=== PATIENT | female | born 1985 | race Hispanic/Latino ===

== ENCOUNTER 2024-03-27 15:02 | Observation (INO) | payer BC, MEDICAID ==
[~2024-03-27] VITALS: Ht 162.6 cm; Wt 75.3 kg
[~2024-03-27 15:02] MED LIST: DOCU-116 PO; IBUP-2077 PO; PREN1TAB80 PO
[2024-03-27 15:33] LABS: APPEARANCE,URINE CLEAR (CLEAR); BILIRUBIN,URINE NEGATIVE (NEGATIVE); COLOR,URINE LIGHT-YELLOW (YELLOW); GLUCOSE, URINE (UA) NEGATIVE (NEGATIVE); KETONES,URINE NEGATIVE (NEGATIVE); LEUKOCYTE ESTERASE ,URINE NEGATIVE Leu/uL (NEGATIVE); NITRATE,URINE NEGATIVE (NEGATIVE); OCCULT BLOOD,URINE NEGATIVE (NEGATIVE); PH,URINE 7.5 (5.0-8.0); PROTEIN,URINE NEGATIVE (NEGATIVE); UROBILINOGEN,URINE 0.2 mg/dL (0.2-1.0)
[2024-03-27] MEDS: LACTATED RINGERS 1000ML IV ONE (15:40)
[2024-03-27 15:47] LABS: ADD UA MICROSCOPIC YES
[2024-03-27 15:50] LABS: SQUAMOUS EPITHELIAL CELL,UR RARE /HPF (0-2); WBC,URINE 0-1 /HPF (0-1)
== END 2024-03-27 17:10 | disposition home or self-care (01) ==
LOC: LDH 15:10
PROVIDERS: ADMIT Obstetrics & Gynecology; ATTEND Obstetrics & Gynecology
DX: O62.9 Abnormality of forces of labor, unspecified (principal); O36.8130 Decreased fetal movements, third trimester, not applicable or unspecified; Z3A.36 36 weeks gestation of pregnancy
CPT/HCPCS: 96360; 81001; 76819; 76805; G0378 ×2; G0379; J7120; 59025

== ENCOUNTER 2024-04-11 17:26 | Inpatient (IN) | payer BC, MEDICAID ==
[~2024-04-11] VITALS: Ht 162.6 cm; Wt 77.6 kg
[2024-04-11] MEDS ORDERED: ePHEDrine SULFate 50 MG/ML AMPULE IVP PRN (18:00)
[2024-04-11] MEDS ORDERED: NALoxone HCL 0.4 MG/1 ML ML IV PRN (18:00)
[2024-04-11 18:27] LABS: HEMATOCRIT 33.9 % (36-48); MEAN CORPUSCULAR HEMOGLOBIN 32.3 pg (27.0-33.0); MEAN CORPUSCULAR HGB CONC 32.7 g/dL (32.0-36.0); MEAN CORPUSCULAR VOLUME 98.5 fL (79-99); RED BLOOD CELL COUNT(AUTO) 3.44 MIL/uL (4.00-5.50); RED CELL DISTRIBUTION WIDTH 13.1 % (11.0-15.5); WHITE BLOOD COUNT (AUTO) 5.4 K/uL (4.8-10.8)
[2024-04-11 18:33] LABS: APPEARANCE,URINE CLEAR (CLEAR); BILIRUBIN,URINE NEGATIVE (NEGATIVE); COLOR,URINE LIGHT-YELLOW (YELLOW); GLUCOSE, URINE (UA) NEGATIVE (NEGATIVE); KETONES,URINE 20 mg/dL (NEGATIVE); LEUKOCYTE ESTERASE ,URINE NEGATIVE Leu/uL (NEGATIVE); NITRATE,URINE NEGATIVE (NEGATIVE); OCCULT BLOOD,URINE NEGATIVE (NEGATIVE); PROTEIN,URINE NEGATIVE (NEGATIVE); UROBILINOGEN,URINE 0.2 mg/dL (0.2-1.0)
[2024-04-11 18:34] LABS: ADD UA MICROSCOPIC YES; MUCUS,URINE RARE LPF (None Seen); SQUAMOUS EPITHELIAL CELL,UR RARE /HPF (0-2); WBC,URINE 0-1 /HPF (0-1)
[2024-04-11] MEDS: DINOPROSTONE 10 MG VAGINAL SUPP VG ONE (19:06)
[2024-04-11 19:41] LABS: HIV 1&2 ANTIBODY Non-Reactive (Negative); HIV-1 p24 Antigen Non-Reactive (Negative)
[2024-04-11] MEDS: PROMETHAZINE HCL 25 MG/ML 1ML AMPULE IM PRN (22:05)
[2024-04-11] MEDS: MEPERIDINE-PF 50 MG/ML SYG IVP PRN (22:11)
[2024-04-12] MEDS: LACTATED RINGERS 1000ML 1,000 ML IV PRN (02:21)
[2024-04-12] MEDS ORDERED: FENTanyl CITRate PF 50 MCG/1 ML 2ML VIAL ONE (07:06)
[2024-04-12] MEDS ORDERED: LIDOCAINE HCL 1% 20 ML VIAL ONE (07:11)
[2024-04-12] MEDS ORDERED: MISOPROSTOL 200 MCG TABLET ONE (07:12)
[2024-04-12] MEDS: LACTATED RINGERS 500 ML 500 ML IV PRN (07:15)
[2024-04-12] MEDS ORDERED: LANOLIN 30GM OINTMENT TP PRN (10:30)
[2024-04-12] MEDS ORDERED: acetaMINOPHEN 325 MG TAB PO PRN (10:30)
[2024-04-12] MEDS ORDERED: DIPH,PERTUSS(ACELL),TET VAC/PF 0.5 ML VIAL IM PRN (10:30)
[2024-04-12] MEDS ORDERED: MEASLES/MUMPS/RUBELLA VACCINE, LIVE 0.5 ML/VIAL SQ PRN (10:30)
[2024-04-12] MEDS: ePHEDrine SULFate 50 MG/ML AMPULE IV STA (10:49)
[2024-04-12 14:00] LABS: RAPID PLASMA REAGIN NONREACTIVE (NONREACTIVE)
[2024-04-12 14:30] VITALS: BP 115/65; PULSE 47; RESP 18; TEMP 98
[2024-04-12] MEDS: ibuPROFEN 600 MG TABLET PO PRN (15:10)
[2024-04-12] MEDS: WITCH HAZEL 1 PAD TP PRN (15:20)
[2024-04-12] MEDS: BENZOCAINE/LANOLIN/ALOE VERA 60 ML AEROSOL TP PRN (15:20)
[2024-04-12 16:00] VITALS: BP 108/70; PULSE 51; RESP 18; TEMP 98
[2024-04-12] MEDS ORDERED: L.AC1CAP6 PO (17:51)
[2024-04-12] MEDS ORDERED: PREN1TAB80 PO (17:51)
[2024-04-12 20:11] VITALS: BP 108/58; PULSE 58; RESP 20; TEMP 98
[2024-04-12] MEDS: doCUSate SODIUM 100 MG CAP PO SCH (20:49)
[2024-04-13] VITALS: BP 107/57; PULSE 67; RESP 20; TEMP 98.2
[2024-04-13] MEDS: acetaMINOPHEN WITH coDEINE 1 TAB TAB PO PRN (03:51)
[2024-04-13 04:00] VITALS: BP 101/64; PULSE 62; RESP 20; TEMP 98
[2024-04-13 07:00] VITALS: BP 97/68; PULSE 71; RESP 18; TEMP 97.8
[2024-04-13 07:31] LABS: HEMATOCRIT 30.3 % (36-48); MEAN CORPUSCULAR HEMOGLOBIN 32.6 pg (27.0-33.0); MEAN CORPUSCULAR HGB CONC 33.7 g/dL (32.0-36.0); MEAN CORPUSCULAR VOLUME 96.8 fL (79-99); RED BLOOD CELL COUNT(AUTO) 3.13 MIL/uL (4.00-5.50); RED CELL DISTRIBUTION WIDTH 13.2 % (11.0-15.5); WHITE BLOOD COUNT (AUTO) 7.3 K/uL (4.8-10.8)
[2024-04-13 11:00] VITALS: BP 118/89; PULSE 74; RESP 18; TEMP 97.8
[2024-04-14 19:50] VITALS: BP 112/69; PULSE 76; RESP 18; TEMP 98.6
== END 2024-04-13 12:50 | disposition home or self-care (01) | DRG 807 ==
LOC: LDH 17:41 → WSH 04-13 06:52
PROVIDERS: ADMIT Obstetrics & Gynecology; ATTEND Obstetrics & Gynecology
PROC: 10E0XZZ Delivery of Products of Conception, External Approach (ICD-10-PCS; principal; 2024-04-12)
PROC: 10907ZC Drainage of Amniotic Fluid, Therapeutic from Products of Conception, Via Natural or Artificial Opening (ICD-10-PCS; 2024-04-12)
PROC: 3E033VJ Introduction of Other Hormone into Peripheral Vein, Percutaneous Approach (ICD-10-PCS; 2024-04-12)
PROC: 3E0P7VZ Introduction of Hormone into Female Reproductive, Via Natural or Artificial Opening (ICD-10-PCS; 2024-04-12)
DX: O80 Encounter for full-term uncomplicated delivery (principal); Z37.0 Single live birth; Z3A.39 39 weeks gestation of pregnancy
CPT/HCPCS: 36415; 81001; 85027; 86592; 86701; 86850; 86900; 86901; 87340; 87390; A4314; A4351; G0378; J2175; J2550; J2795; J3010; J3490; J7120